=== PATIENT | female | born 1970 | race Caucasian/White ===

== ENCOUNTER → 2017-05-04 | Outpatient (CLI) | payer BC ==
[~2017-05-04] MED LIST: BENADRYL25 MG PO; BUPR100 PO; BUPR150T2 PO; BUPR75; BUPR75 PO; BUTALB-ACETAMI1 EAC2 PO; Bentyl20 MG PO; CHOL10002 PO; CIPR500 PO; DEXA4; DIPH50 PO; EPIN.3I IM; EPIPEN0.3 MG/0.3 IM; EPIPEN0.3 MG/0.3 SC; ESOM20; Esgic Tablet1 EACH PO; FAMC500 PO; FAMO20 PO; GABA100; GABA300 PO; HYDACE5; LORA.5 PO; LORA1; LORA1 PO; LORA2 PO; METO10 PO; METR500 PO; MULVITA PO; NAPR220; ONDA4 PO; OXYC15ER PO; PROC10ER; PROM25 PO; PSEU120ER PO; Prednisone20 MG PO; SUDAGEST PO; SULTRISS PO; Sudogest60 MG PO; VITAMIN B COMP1 EACH PO; VITAMINS; Wellbutrin PO; [UNRECOGNIZED DRUG - OTHER]; [UNRECOGNIZED DRUG - OTHER]; [UNRECOGNIZED DRUG - OTHER] PO
[2017-05-04 15:15] LABS: Albumin, Blood 3.6 g/dL (3.4-5.0); Albumin/Globulin Ratio 1.1 (0.8-1.8); Bilirubin, Total 0.2 mg/dL (0.1-1.0); Bun/Creatinine Ratio 23.4 (12.0-20.0); Creatinine, Blood 1.07 mg/dL (0.40-1.00); Globulin, Blood 3.3 g/dL (2.2-4.0); Potassium, Blood 4.3 mmol/L (3.5-5.5); Total Protein, Blood 6.9 g/dL (6.4-8.2)
== END | disposition home or self-care (01) ==
LOC: LAB 13:02
PROVIDERS: Internal Medicine Hematology & Oncology
DX: C50.811 Malignant neoplasm of overlapping sites of right female breast (principal); D51.8 Other vitamin B12 deficiency anemias; R42 Dizziness and giddiness
CPT/HCPCS: 80053; 85651; 86300

== ENCOUNTER 2017-05-07 16:50 | Emergency (ER) | payer BC ==
[~2017-05-07] VITALS: Ht 160 cm; Wt 68.0 kg
[~2017-05-07 16:50] MED LIST changes: -BENADRYL25 MG PO; -BUTALB-ACETAMI1 EAC2 PO; -Bentyl20 MG PO; -CHOL10002 PO; -EPIPEN0.3 MG/0.3 IM; -EPIPEN0.3 MG/0.3 SC; -ONDA4 PO; -Prednisone20 MG PO; -Sudogest60 MG PO; -VITAMIN B COMP1 EACH PO; -[UNRECOGNIZED DRUG - OTHER]; -[UNRECOGNIZED DRUG - OTHER]; -[UNRECOGNIZED DRUG - OTHER] PO
[2017-05-07 18:30] LABS: Calcium, Ionized (POC) 1.14 mmol/L (1.10-1.46); Chloride (POC) 102 mmol/L (98-108); Glucose (ISTAT POC) 119 mg/dL (70-99); Hemoglobin (POC) 14.3 g/dL (12.0-16.0); Sodium (POC) 141 mmol/L (135-148); Total CO2 (POC) 28 mmol/L (21-32)
[2017-11-03] MEDS ORDERED: EPIPEN0.3 MG/0.3 IM (13:23)
[2017-11-03] MEDS ORDERED: Prednisone20 MG PO (13:48)
[2018-01-31] MEDS ORDERED: BENADRYL25 MG PO (14:18)
[2018-01-31] MEDS ORDERED: [UNRECOGNIZED DRUG - OTHER] (14:20)
[2018-01-31] MEDS ORDERED: [UNRECOGNIZED DRUG - OTHER] (14:20)
[2018-01-31] MEDS ORDERED: Sudogest60 MG PO (14:22)
[2018-01-31] MEDS ORDERED: [UNRECOGNIZED DRUG - OTHER] PO (14:24)
[2018-01-31] MEDS ORDERED: Bentyl20 MG PO (14:26)
[2018-01-31] MEDS ORDERED: EPIPEN0.3 MG/0.3 SC (14:27)
[2018-01-31] MEDS ORDERED: BUTALB-ACETAMI1 EAC2 PO (14:29)
[2018-01-31] MEDS ORDERED: CHOL10002 PO (14:29)
[2018-01-31] MEDS ORDERED: VITAMIN B COMP1 EACH PO (14:30)
== END 2017-05-07 19:25 | disposition home or self-care (01) ==
LOC: ER 16:50
PROVIDERS: Emergency Medicine
DX: J02.9 Acute pharyngitis, unspecified (principal); Z85.3 Personal history of malignant neoplasm of breast
CPT/HCPCS: 36415; 70491; 80047; 85014; 96361; 96374; 96375; 99284; J1170; J1885; J2405; J7030; Q9967

== ENCOUNTER → 2018-01-03 | Outpatient (CLI) | payer BC ==
[~2018-01-03] MED LIST changes: +EPIPEN0.3 MG/0.3 IM; +Prednisone20 MG PO
[2018-01-05 16:08] LABS: HPV 16 Negative (Negative); HPV 18 Negative (Negative); HPV OTHER HR TYPES Negative (Negative)
== END | disposition home or self-care (01) ==
LOC: LAB 17:56 → LAB SHORT 17:56
PROVIDERS: Obstetrics & Gynecology Gynecology
DX: Z12.72 Encounter for screening for malignant neoplasm of vagina (principal)
CPT/HCPCS: 87624; G0123

== ENCOUNTER 2018-02-06 08:25 | Day surgery (SDC) | payer BC ==
[~2018-02-06] VITALS: Ht 160 cm; Wt 64.3 kg
[~2018-02-06 08:25] MED LIST changes: +BENADRYL25 MG PO; +BUTALB-ACETAMI1 EAC2 PO; +Bentyl20 MG PO; +CHOL10002 PO; +EPIPEN0.3 MG/0.3 SC; +Sudogest60 MG PO; +VITAMIN B COMP1 EACH PO; +[UNRECOGNIZED DRUG - OTHER]; +[UNRECOGNIZED DRUG - OTHER]; +[UNRECOGNIZED DRUG - OTHER] PO
[2018-02-06] MEDS ORDERED: ONDA4 PO (09:02)
== END 2018-02-06 10:45 | disposition home or self-care (01) ==
LOC: ORSCSDS 08:25
PROVIDERS: Surgery
PROC: 0DJD8ZZ Inspection of Lower Intestinal Tract, Via Natural or Artificial Opening Endoscopic (ICD-10-PCS; principal; 2018-02-06 09:30)
DX: R19.4 Change in bowel habit (principal); R10.33 Periumbilical pain; Z80.0 Family history of malignant neoplasm of digestive organs; Z79.899 Other long term (current) drug therapy
CPT/HCPCS: J7120

== ENCOUNTER → 2019-02-20 | Outpatient (CLI) | payer BC ==
[~2019-02-20] MED LIST changes: +ONDA4 PO; +Vistaril50 MG PO
[2019-02-21 14:07] LABS: HPV 16 Negative (Negative); HPV 18 Negative (Negative); HPV OTHER HR TYPES Negative (Negative)
== END | disposition home or self-care (01) ==
LOC: LAB 11:36 → LAB SHORT 11:36
PROVIDERS: Obstetrics & Gynecology Gynecology
DX: Z12.72 Encounter for screening for malignant neoplasm of vagina (principal)
CPT/HCPCS: 87624; G0123

== ENCOUNTER 2019-06-05 12:23 | Day surgery (SDC) | payer BC ==
[~2019-06-05] VITALS: Ht 160 cm; Wt 62.4 kg
[2019-06-05] MEDS ORDERED: Wellbutrin Sr200 MG (12:46)
[2019-06-05] MEDS ORDERED: OXYC15ER (12:46)
[2019-06-05] MEDS ORDERED: Ativan1 MG (12:46)
[2019-06-05] MEDS ORDERED: BENADRYL25 MG (12:47)
[2019-06-05] MEDS ORDERED: PROBIOTIC1 EAC4 (12:48)
[2019-06-05] MEDS ORDERED: Sudogest60 MG (12:48)
[2019-06-05] MEDS ORDERED: Bentyl10 MG (12:48)
--- NOTE | 2019-06-05 13:23 | NUR ---
06/05/19 1323 Eva Bond S PT. VERBALIZES SHE GETS A RASH WITH PLASTIC. PT. HAS HAD BREATHING TUBES & GETS BLISTERS IN HER MOUTH. PT. INSTRUCTED THAT WE PUT O2 & A BITE BLOCK IN HER MOUTH FOR THE PROCEDURE WHICH IS PLASTIC. PER PT. IT WILL BE OK FOR A SHORT TIME. DR. SANTOS AWARE OF THE ABOVE. PT. ALSO C/O HAND FOAM USED WHEN ENTERING ROOM & SHE VERBALIZED IT BURNING HER THROAT. DR. SANTOS ALSO NOTIFIED.
--- NOTE | 2019-06-05 14:40 | NUR ---
06/05/19 1440 Eva Bond PT. VERBALIZES FEELING DIZZY. PT. INSTRUCTED THAT THE MEDICATION CAN MAKE HE FEEL THIS WAY. PT. DIDN'T WANT HER JUICE AT THIS TIME. FAMILY IS IN ROOM WITH PT. DC INSTRUCTIONS GIVEN TO PT. & FAMILY WITH UNDERSTANDING. WHEN ASKED PT. IF SHE HAD ANY PAIN, PT. DENIED. WHEN ASKED IF SHE HAD ANY SORE THROAT PT. STATED "IT FEELS STICKY." PT. STILL DIDN'T WANT HER APPLE JUICE.
== END 2019-06-05 15:05 | disposition home or self-care (01) ==
LOC: ORSCSDS 12:23
PROVIDERS: Surgery
PROC: 0DJ08ZZ Inspection of Upper Intestinal Tract, Via Natural or Artificial Opening Endoscopic (ICD-10-PCS; principal; 2019-06-05 13:30)
PROC: 0DBK8ZX Excision of Ascending Colon, Via Natural or Artificial Opening Endoscopic, Diagnostic (ICD-10-PCS; principal; 2019-06-05 13:30)
DX: R19.4 Change in bowel habit (principal); D12.2 Benign neoplasm of ascending colon; Z80.0 Family history of malignant neoplasm of digestive organs; R63.4 Abnormal weight loss; D64.9 Anemia, unspecified; F32.9 Major depressive disorder, single episode, unspecified; Z79.899 Other long term (current) drug therapy
CPT/HCPCS: 88305; J2704; J7120

== ENCOUNTER → 2019-06-08 | Outpatient (CLI) | payer BC ==
[~2019-06-08] MED LIST changes: +Ativan1 MG; +BENADRYL25 MG; +Bentyl10 MG; +OXYC15ER; +PROBIOTIC1 EAC4; +Sudogest60 MG; +Wellbutrin Sr200 MG
[2019-06-08 16:39] LABS: Free Thyroxine 0.88 ng/dL (0.70-1.60)
[2019-06-08 17:09] LABS: Thyroid Stimulating Hormone 2.02 uIU/mL (0.360-4.800)
== END | disposition home or self-care (01) ==
LOC: LAB 15:33 → LAB SHORT 15:33
PROVIDERS: Internal Medicine Hematology & Oncology
DX: D51.8 Other vitamin B12 deficiency anemias (principal); R53.81 Other malaise; R53.83 Other fatigue
CPT/HCPCS: 82306; 82607; 82746; 84439; 84443

== ENCOUNTER → 2019-07-09 | Outpatient (CLI) | payer BC ==
[2019-07-09 18:17] LABS: Percent Saturation 30.8 % (15.0-50.0)
== END | disposition home or self-care (01) ==
LOC: LAB 17:19 → LAB SHORT 17:19
PROVIDERS: Internal Medicine Hematology & Oncology
DX: D64.9 Anemia, unspecified (principal)
CPT/HCPCS: 82728; 83540; 83550

== ENCOUNTER → 2020-01-07 | Outpatient (CLI) | payer BC ==
[2020-01-07 19:58] LABS: Alanine Aminotransfer (ALT/SGP 28 U/L (12-78); Albumin, Blood 3.8 g/dL (3.4-5.0); Albumin/Globulin Ratio 1.3 (0.8-1.8); Alk Phos 57 U/L (50-136); Anion Gap 6 mmol/L (6-16); Aspartate Aminotrans (AST/SGOT 21 U/L (12-37); Bilirubin, Total 0.4 mg/dL (0.1-1.0); Blood Urea Nitrogen 25 mg/dL (8-24); Bun/Creatinine Ratio 29.4 (12.0-20.0); CO2, Blood 27 mmol/L (21-32); Calcium, Blood 9.2 mg/dL (8.5-10.1); Chloride, Blood 111 mmol/L (98-108); Creatinine, Blood 0.85 mg/dL (0.40-1.00); Globulin, Blood 2.9 g/dL (2.2-4.0); Glomerular Filtration Rate >60 (60-); Glucose, Blood 88 mg/dL (70-99); Phosphorus, Blood 2.8 mg/dL (2.5-4.9); Potassium, Blood 4.5 mmol/L (3.5-5.5); Sodium, Blood 144 mmol/L (136-145); Total Protein, Blood 6.7 g/dL (6.4-8.2)
== END | disposition home or self-care (01) ==
LOC: LAB SHORT 18:00 → LAB 18:00
PROVIDERS: Internal Medicine Hematology & Oncology
DX: C50.811 Malignant neoplasm of overlapping sites of right female breast (principal)
CPT/HCPCS: 80053; 84100; 86300

== ENCOUNTER → 2020-02-07 | Outpatient (CLI) | payer BC | END | disposition home or self-care (01) | LOC: LAB SHORT 17:39 → LAB 17:39 | PROVIDERS: Internal Medicine Hematology & Oncology | DX: D51.8 Other vitamin B12 deficiency anemias (principal) | CPT/HCPCS: 82728; 83540; 83550 ==

== ENCOUNTER → 2020-06-13 | Outpatient (CLI) | payer BC ==
[2020-06-13 15:20] LABS: U Amphetamine Screen Not Detected; U Barbituate Screen DETECTED; U Benzodiazapine Screen DETECTED; U Buprenorphine Screen Not Detected; U Cannabinoids Screen Not Detected; U Cocaine Screen Not Detected; U Methadone Screen Not Detected; U Methamphetamine Screen Not Detected; U Opiates Screen Not Detected; U Oxycodone Screen DETECTED; U Phencyclidine Screen Not Detected; U Propoxyphene Screen Not Detected
== END | disposition home or self-care (01) ==
LOC: LAB SHORT 13:14 → PLD 13:14
PROVIDERS: Internal Medicine Hematology & Oncology
DX: Z51.81 Encounter for therapeutic drug level monitoring (principal); Z79.899 Other long term (current) drug therapy
CPT/HCPCS: G0480

== ENCOUNTER 2020-07-15 08:49 | Day surgery (SDC) | payer BC ==
[~2020-07-15] VITALS: Ht 160 cm; Wt 59.6 kg
--- NOTE | 2020-07-15 09:30 | NUR ---
07/15/20 0930 Promise Harry 1 TRY RIGHT WRIST VALVE
--- NOTE | 2020-07-15 11:43 | NUR ---
07/15/20 1143 Concepcion De Paz [age]M PATIENT C/O ABD CRAMPING 4/10. SHE ACCEPTS WARM BLANKET TO ABDOMEN TO HELP THIS. AT 1110 I ASK HER AGAIN ABOUT HER PAIN AND SHE STATES IT IS BETTER. WHEN I ASK HER TO RATE HER PAIN SHE SAYS "I DONT KNOW WHAT I SAID LAST TIME BUT NOW IT IS 7/10. PATIENT APPEARED VERY DRAMATIC AND UNABLE TO DRESS HERSELF. I ASSISTED WITH THE DRESSING PROCESS AND HELPED HER GET INTO THE WHEELCHAIR WITH JUST SOME GUIDANCE. I WAS WHEELING PATIENT TO CAR I ASKED HER ABOUT HER PAIN AGAIN AND SHE SAID "BETTER" AND RATED 6/10. WHEN WE GOT TO THE CAR SHE APPEARED TO SLUMP OVER IN THE WHEELCHAIR AND HER BASICALLY PICKED HER UP OUT OF THE CHAIR AND PUT HER IN THE FRONT SEAT. PATIENT WAS DISCHARGED IN STABLE CONDITION IN MY ASSESSMENT
== END 2020-07-15 11:30 | disposition home or self-care (01) ==
LOC: ORSCSDS 08:49
PROVIDERS: Surgery
PROC: 0DJ08ZZ Inspection of Upper Intestinal Tract, Via Natural or Artificial Opening Endoscopic (ICD-10-PCS; principal; 2020-07-15 10:00)
PROC: 0DJD8ZZ Inspection of Lower Intestinal Tract, Via Natural or Artificial Opening Endoscopic (ICD-10-PCS; 2020-07-15 10:00)
DX: R19.4 Change in bowel habit (principal); Z86.010 Personal history of colon polyps; D50.8 Other iron deficiency anemias; F32.9 Major depressive disorder, single episode, unspecified; Z79.899 Other long term (current) drug therapy
CPT/HCPCS: J2250; J2704; J7120

== ENCOUNTER 2021-08-18 09:00 | Day surgery (SDC) | payer BC ==
[~2021-08-18] VITALS: Ht 160 cm; Wt 64.6 kg
[~2021-08-18 09:00] MED LIST changes: +BUTALBITAL-ASA1 EACH PO; +Budeprion Xl300 MG PO; +DICY20 PO; +EPIPEN0.3 MG/0.1 IJ
--- NOTE | 2021-08-18 11:10 | NUR ---
08/18/21 1110 YOUSUF TERRY RN RECIEVED REPORT FROM [facility]- TAKING OVER PT- PT COMPLAINS OF RIGHT SIDED 9/10 ABDOMINAL PAIN. RN NOTIFIED DR SANTOS AWARE- DOES NOT WANT TO MEDICATE BECAUSE PT HAD OXYCODONE THIS AM. RN RECOMMENDED DIFFERENT POSITIONING AND WALKING TO HELP RELIEVE GAS- PT REFUSING AT THIS TIME , WILL CONITNUE TO MONITOR.
== END 2021-08-18 14:06 | disposition home or self-care (01) ==
LOC: ORSCSDS 09:00
PROVIDERS: Surgery
PROC: 0DJD8ZZ Inspection of Lower Intestinal Tract, Via Natural or Artificial Opening Endoscopic (ICD-10-PCS; principal; 2021-08-18 10:15)
DX: K62.5 Hemorrhage of anus and rectum (principal); K64.8 Other hemorrhoids; Z80.0 Family history of malignant neoplasm of digestive organs; Z85.3 Personal history of malignant neoplasm of breast; K21.9 Gastro-esophageal reflux disease without esophagitis; F32.A Depression, unspecified; Z79.899 Other long term (current) drug therapy
CPT/HCPCS: 74176; J1170; J2704; J7120

== ENCOUNTER → 2021-10-08 | Outpatient (CLI) | payer BC ==
[2021-10-08 17:00] LABS: U Amphetamine Screen Not Detected; U Barbituate Screen Not Detected; U Benzodiazapine Screen Not Detected; U Buprenorphine Screen Not Detected; U Cannabinoids Screen Not Detected; U Cocaine Screen Not Detected; U Methadone Screen Not Detected; U Methamphetamine Screen Not Detected; U Opiates Screen Not Detected; U Oxycodone Screen DETECTED; U Phencyclidine Screen Not Detected; U Propoxyphene Screen Not Detected
== END | disposition home or self-care (01) ==
LOC: LAB SHORT 12:04 → LAB 12:04
PROVIDERS: Internal Medicine Hematology & Oncology
DX: Z51.81 Encounter for therapeutic drug level monitoring (principal); Z79.899 Other long term (current) drug therapy

== ENCOUNTER 2021-10-20 07:11 | Emergency (ER) | payer BC ==
[~2021-10-20] VITALS: Ht 160 cm; Wt 63.5 kg
== END 2021-10-20 11:59 | disposition home or self-care (01) ==
LOC: ER 07:11
DX: G43.909 Migraine, unspecified, not intractable, without status migrainosus (principal); Z79.899 Other long term (current) drug therapy; Z91.038 Other insect allergy status; Z91.040 Latex allergy status; Z88.5 Allergy status to narcotic agent; Z91.013 Allergy to seafood; Z88.8 Allergy status to other drugs, medicaments and biological substances; Z91.09 Other allergy status, other than to drugs and biological substances
CPT/HCPCS: 36415; J0780; J1200; J1885; J7030

== ENCOUNTER → 2021-11-05 | Outpatient (CLI) | payer BC ==
[2021-11-05 15:53] LABS: U Amphetamine Screen Not Detected; U Barbituate Screen DETECTED; U Benzodiazapine Screen Not Detected; U Buprenorphine Screen Not Detected; U Cannabinoids Screen Not Detected; U Cocaine Screen Not Detected; U Methadone Screen Not Detected; U Methamphetamine Screen Not Detected; U Opiates Screen Not Detected; U Oxycodone Screen DETECTED; U Phencyclidine Screen Not Detected; U Propoxyphene Screen Not Detected
== END | disposition home or self-care (01) ==
LOC: LAB SHORT 10:52 → LAB 10:52
PROVIDERS: Internal Medicine Hematology & Oncology
DX: Z51.81 Encounter for therapeutic drug level monitoring (principal); Z79.899 Other long term (current) drug therapy
CPT/HCPCS: G0480

== ENCOUNTER → 2021-12-10 | Outpatient (CLI) | payer BC ==
[2021-12-10 14:24] LABS: Protein, Urine Quantitative <5.0 mg/dL (0.0-11.9)
== END | disposition home or self-care (01) ==
LOC: LAB 09:00 → LAB SHORT 09:00 → LAB FUT 10-08 17:00
PROVIDERS: Internal Medicine Nephrology
DX: N18.2 Chronic kidney disease, stage 2 (mild) (principal); D63.1 Anemia in chronic kidney disease; N25.81 Secondary hyperparathyroidism of renal origin; E55.9 Vitamin D deficiency, unspecified; E78.00 Pure hypercholesterolemia, unspecified; R76.9 Abnormal immunological finding in serum, unspecified; R94.5 Abnormal results of liver function studies; R94.6 Abnormal results of thyroid function studies
CPT/HCPCS: 81050; 82043; 84156

== ENCOUNTER → 2021-12-10 | Outpatient (CLI) | payer BC ==
[2021-12-10 16:20] LABS: U Amphetamine Screen Not Detected; U Methamphetamine Screen Not Detected
[2021-12-10 16:21] LABS: U Barbituate Screen DETECTED; U Benzodiazapine Screen Not Detected; U Buprenorphine Screen Not Detected; U Cannabinoids Screen Not Detected; U Cocaine Screen Not Detected; U Methadone Screen Not Detected; U Opiates Screen Not Detected; U Oxycodone Screen DETECTED; U Phencyclidine Screen Not Detected; U Propoxyphene Screen Not Detected
== END | disposition home or self-care (01) ==
LOC: LAB SHORT 10:42
PROVIDERS: Internal Medicine Hematology & Oncology
DX: Z51.81 Encounter for therapeutic drug level monitoring (principal); Z79.899 Other long term (current) drug therapy

== ENCOUNTER → 2022-03-08 | Outpatient (CLI) | payer BC ==
[2022-03-08 16:33] LABS: U Amphetamine Screen Not Detected; U Barbituate Screen DETECTED; U Benzodiazapine Screen Not Detected; U Buprenorphine Screen Not Detected; U Cannabinoids Screen Not Detected; U Cocaine Screen Not Detected; U Methadone Screen Not Detected; U Methamphetamine Screen Not Detected; U Opiates Screen Not Detected; U Oxycodone Screen DETECTED; U Phencyclidine Screen Not Detected; U Propoxyphene Screen Not Detected
== END | disposition home or self-care (01) ==
LOC: LAB 10:31 → LAB SHORT 10:31
PROVIDERS: Internal Medicine Hematology & Oncology
DX: Z51.81 Encounter for therapeutic drug level monitoring (principal); Z79.899 Other long term (current) drug therapy

== ENCOUNTER 2022-04-06 12:02 | Day surgery (SDC) | payer BC ==
[~2022-04-06] VITALS: Ht 160 cm; Wt 67.6 kg
[2022-04-06] MEDS ORDERED: PSEUDOEPHEDRINE30 MG (12:46)
== END 2022-04-06 13:49 | disposition home or self-care (01) ==
LOC: ORSCSDS 12:02
PROVIDERS: Surgery
PROC: 0DJ08ZZ Inspection of Upper Intestinal Tract, Via Natural or Artificial Opening Endoscopic (ICD-10-PCS; principal; 2022-04-06 13:00)
DX: R13.19 Other dysphagia (principal); K21.9 Gastro-esophageal reflux disease without esophagitis; F32.A Depression, unspecified; Z87.11 Personal history of peptic ulcer disease; Z85.3 Personal history of malignant neoplasm of breast; Z79.899 Other long term (current) drug therapy
CPT/HCPCS: J2704; J7120

== ENCOUNTER → 2022-04-08 | Outpatient (CLI) | payer BC ==
[~2022-04-08] MED LIST changes: +PSEUDOEPHEDRINE30 MG
[2022-04-08 15:45] LABS: U Amphetamine Screen Not Detected; U Barbituate Screen Not Detected; U Benzodiazapine Screen DETECTED; U Buprenorphine Screen Not Detected; U Cannabinoids Screen Not Detected; U Cocaine Screen Not Detected; U Methadone Screen Not Detected; U Methamphetamine Screen Not Detected; U Opiates Screen Not Detected; U Oxycodone Screen DETECTED; U Phencyclidine Screen Not Detected; U Propoxyphene Screen Not Detected
== END | disposition home or self-care (01) ==
LOC: LAB SHORT 10:09
PROVIDERS: Internal Medicine Hematology & Oncology
DX: Z51.81 Encounter for therapeutic drug level monitoring (principal); Z79.899 Other long term (current) drug therapy

== ENCOUNTER → 2022-05-10 | Outpatient (CLI) | payer BC ==
[2022-05-10 14:16] LABS: U Amphetamine Screen Not Detected; U Barbituate Screen DETECTED; U Benzodiazapine Screen Not Detected; U Buprenorphine Screen Not Detected; U Cannabinoids Screen Not Detected; U Cocaine Screen Not Detected; U Methadone Screen Not Detected; U Methamphetamine Screen Not Detected; U Opiates Screen Not Detected; U Oxycodone Screen DETECTED; U Phencyclidine Screen Not Detected; U Propoxyphene Screen Not Detected
== END | disposition home or self-care (01) ==
LOC: LAB 12:34 → LAB SHORT 12:34
PROVIDERS: Internal Medicine Hematology & Oncology
DX: Z51.81 Encounter for therapeutic drug level monitoring (principal); Z79.899 Other long term (current) drug therapy

== ENCOUNTER → 2022-05-19 | Outpatient (CLI) | payer BC | END | disposition home or self-care (01) | LOC: LAB 17:33 → LAB SHORT 17:33 | DX: R31.9 Hematuria, unspecified (principal) | CPT/HCPCS: 87086 ==

== ENCOUNTER → 2022-07-08 | Outpatient (CLI) | payer BC ==
[2022-07-08 16:03] LABS: U Amphetamine Screen Not Detected; U Barbituate Screen Not Detected; U Benzodiazapine Screen DETECTED; U Buprenorphine Screen Not Detected; U Cannabinoids Screen Not Detected; U Cocaine Screen Not Detected; U Methadone Screen Not Detected; U Methamphetamine Screen Not Detected; U Opiates Screen Not Detected; U Oxycodone Screen DETECTED; U Phencyclidine Screen Not Detected; U Propoxyphene Screen Not Detected
== END | disposition home or self-care (01) ==
LOC: LAB 12:49 → LAB SHORT 12:49
PROVIDERS: Internal Medicine Hematology & Oncology
DX: Z51.81 Encounter for therapeutic drug level monitoring (principal); Z79.899 Other long term (current) drug therapy

== ENCOUNTER → 2022-09-02 | Outpatient (CLI) | payer BC ==
[2022-09-02 18:51] LABS: U Amphetamine Screen Not Detected; U Barbituate Screen DETECTED; U Benzodiazapine Screen DETECTED; U Buprenorphine Screen Not Detected; U Cannabinoids Screen Not Detected; U Cocaine Screen Not Detected; U Methadone Screen Not Detected; U Methamphetamine Screen Not Detected; U Opiates Screen Not Detected; U Oxycodone Screen DETECTED; U Phencyclidine Screen Not Detected; U Propoxyphene Screen Not Detected
== END ==
LOC: LAB 11:08 → LAB SHORT 11:08
PROVIDERS: Internal Medicine Hematology & Oncology
DX: Z51.81 Encounter for therapeutic drug level monitoring (principal); Z79.899 Other long term (current) drug therapy

== ENCOUNTER → 2022-11-03 | Outpatient (CLI) | payer BC ==
[2022-11-03 19:59] LABS: U Amphetamine Screen Not Detected; U Barbituate Screen Not Detected; U Benzodiazapine Screen DETECTED; U Buprenorphine Screen Not Detected; U Cannabinoids Screen Not Detected; U Cocaine Screen Not Detected; U Methadone Screen Not Detected; U Methamphetamine Screen Not Detected; U Opiates Screen Not Detected; U Oxycodone Screen DETECTED; U Phencyclidine Screen Not Detected; U Propoxyphene Screen Not Detected
== END ==
LOC: LAB 13:20 → LAB SHORT 13:20
PROVIDERS: Internal Medicine Hematology & Oncology
DX: Z51.81 Encounter for therapeutic drug level monitoring (principal); Z79.899 Other long term (current) drug therapy
CPT/HCPCS: G0480

== ENCOUNTER → 2023-02-10 | Outpatient (CLI) | payer BC ==
[2023-02-10 18:56] LABS: U Amphetamine Screen Not Detected; U Barbituate Screen DETECTED; U Benzodiazapine Screen DETECTED; U Buprenorphine Screen Not Detected; U Cannabinoids Screen Not Detected; U Cocaine Screen Not Detected; U Methadone Screen Not Detected; U Methamphetamine Screen Not Detected; U Opiates Screen Not Detected; U Oxycodone Screen DETECTED; U Phencyclidine Screen Not Detected; U Propoxyphene Screen Not Detected
== END | disposition home or self-care (01) ==
LOC: LAB 15:30 → LAB SHORT 15:30
PROVIDERS: Internal Medicine Hematology & Oncology
DX: Z51.81 Encounter for therapeutic drug level monitoring (principal); Z79.899 Other long term (current) drug therapy

== ENCOUNTER → 2024-12-06 | Outpatient (CLI) | payer BC ==
[~2024-12-06] MED LIST changes: +Ativan1 MG PO; +DIPH25 PO
[2024-12-06 16:38] LABS: U Amphetamine Screen Not Detected; U Barbituate Screen DETECTED; U Benzodiazapine Screen DETECTED; U Buprenorphine Screen Not Detected; U Cannabinoids Screen Not Detected; U Cocaine Screen Not Detected; U Methadone Screen Not Detected; U Methamphetamine Screen Not Detected; U Opiates Screen Not Detected; U Oxycodone Screen DETECTED; U Phencyclidine Screen Not Detected
== END ==
LOC: LAB SHORT 14:52 → LAB 14:52
PROVIDERS: Internal Medicine Hematology & Oncology
DX: C50.811 Malignant neoplasm of overlapping sites of right female breast (principal); Z79.899 Other long term (current) drug therapy

== ENCOUNTER 2025-03-13 23:30 | Emergency (ER) | payer BC ==
[~2025-03-13] VITALS: Ht 167.6 cm; Wt 65.8 kg
[2025-03-14] MEDS ORDERED: Diazepam 5 MG / ML 2ML SYR IV ONE (00:30)
[2025-03-14] MEDS ORDERED: Ketorolac Tromethamine 15mg Vial IV ONE (00:35)
[2025-03-14] MEDS ORDERED: Voltaren100 GM TOP (02:17)
[2025-03-14] MEDS ORDERED: Robaxin750 MG PO (02:17)
[2025-03-14 02:35] VITALS: BP 123/84
== END 2025-03-14 02:37 | disposition home or self-care (01) ==
LOC: ER 23:30
DX: S76.011A Strain of muscle, fascia and tendon of right hip, initial encounter (principal); X58.XXXA Exposure to other specified factors, initial encounter; Z91.030 Bee allergy status; Z91.013 Allergy to seafood; Z88.8 Allergy status to other drugs, medicaments and biological substances; Z79.899 Other long term (current) drug therapy
CPT/HCPCS: 73502; 96374; 96375; 99283; J1885; J3360